=== PATIENT | male | born 1935 | race Caucasian/White ===

== ENCOUNTER 2018-03-03 08:41 | Inpatient (IN) | payer OTHER ==
[~2018-03-03] VITALS: Ht 167.6 cm; Wt 75.7 kg
[2018-03-03] MEDS ORDERED: LOSA100T6 PO (09:02)
[2018-03-03] MEDS ORDERED: CLOP75TA PO (09:03)
[2018-03-03] MEDS ORDERED: CHLO50TA PO (09:03)
[2018-03-03] MEDS ORDERED: ATOR20TA9 PO (09:04)
[2018-03-03] MEDS ORDERED: AMLO5TAB2 PO (09:04)
[2018-03-03] MEDS ORDERED: [UNRECOGNIZED DRUG - OTHER] (09:15)
[2018-03-03] MEDS ORDERED: SODIUM CHLORIDE FLUSH 10ML SYR IVF ONE (09:30)
[2018-03-03 10:07] LABS: BASOPHILS # (AUTO) 0.06 x10^3/uL (0-0.1); BASOPHILS % (AUTO) 1 % (0-1); EOSINOPHILS # (AUTO) 0.18 x10^3/uL (0-0.4); EOSINOPHILS % (AUTO) 2 % (1-7); LYMPHOCYTES # (AUTO) 1.22 x10^3/uL (1-3.4); LYMPHOCYTES % (AUTO) 14 % (22-44); MD NO; MEAN CORPUSCULAR HEMOGLOBIN 29.9 pg (27.5-34.5); MEAN CORPUSCULAR HGB CONC 33.7 g/dL (33.2-36.2); MEAN CORPUSCULAR VOLUME 88.6 fL (81-97); MONOCYTES # (AUTO) 0.73 x10^3/uL (0.2-0.8); MONOCYTES % (AUTO) 8 % (2-9); NEUTROPHILS # (AUTO) 6.84 x10^3/uL (1.8-6.8); NEUTROPHILS % (AUTO) 76 % (42-75); PLATELET COUNT 271 x10^3/uL (130-400); RED BLOOD COUNT 4.29 x10^6/uL (4.38-5.82); RED CELL DISTRIBUTION WIDTH 13.4 % (9.4-14.8)
[2018-03-03 10:08] LABS: ALBUMIN 3.7 g/dL (3.4-5.0); ANION GAP 9 mmol/L (5-15); CALCIUM 8.7 mg/dL (8.5-10.1); CHLORIDE 103 mmol/L (98-107); CREATININE 1.15 mg/dL (0.7-1.3)
[2018-03-03 10:49] LABS: TROPONIN I < 0.015 ng/mL (0.000-0.045)
[2018-03-03] MEDS ORDERED: NITROGLYCERIN 0.4 MG/SPRAY SL PRN (12:30)
[2018-03-03] MEDS ORDERED: morphine SULFATE 10 MG/ML, 1ML IVPush PRN (12:30)
[2018-03-03] MEDS ORDERED: NITROGLYCERIN 0.4 MG BOTTLE (25 TABS) SL PRN (12:30)
[2018-03-03] MEDS ORDERED: ONDANSETRON 2MG/ML, 2ML IVPush PRN (12:30)
[2018-03-03] MEDS ORDERED: ONDANSETRON ODT 4 MG PO PRN (12:30)
[2018-03-03] MEDS ORDERED: ENOXAPARIN 40 MG/0.4 ML SQ SCH (13:00)
[2018-03-03] MEDS ORDERED: POTASSIUM CHLORIDE 20 MEQ TAB.ER.PRT PO ONE (13:00)
[2018-03-03] MEDS ORDERED: HEPARIN 25,000 UNITS/500ML PMX 500 ML IV PRN (13:30)
[2018-03-03] MEDS ORDERED: HEPARIN 5,000 UNITS/ML, 1ML IV ONE (13:30)
[2018-03-03] MEDS ORDERED: HEPARIN 5,000 UNITS/ML, 1ML IV PRN (13:30)
[2018-03-03 13:46] LABS: HEMOGLOBIN A1C 7.5 % (4.2-6.3)
[2018-03-03 15:35] LABS: TROPONIN I < 0.015 ng/mL (0.000-0.045)
[2018-03-03] MEDS: ACETAMINOPHEN 325 MG TABLET PO PRN (20:05)
[2018-03-03] MEDS: ATORVASTATIN 20 MG TABLET PO SCH (20:05)
[2018-03-03 20:31] VITALS: BP 148/71
[2018-03-03 21:45] LABS: TROPONIN I < 0.015 ng/mL (0.000-0.045)
[2018-03-04 03:15] VITALS: BP 121/70
[2018-03-04 04:51] LABS: BASOPHILS # (AUTO) 0.05 x10^3/uL (0-0.1); BASOPHILS % (AUTO) 1 % (0-1); EOSINOPHILS # (AUTO) 0.28 x10^3/uL (0-0.4); EOSINOPHILS % (AUTO) 3 % (1-7); LYMPHOCYTES # (AUTO) 2.66 x10^3/uL (1-3.4); LYMPHOCYTES % (AUTO) 29 % (22-44); MD NO; MEAN CORPUSCULAR HEMOGLOBIN 30.8 pg (27.5-34.5); MEAN CORPUSCULAR HGB CONC 34.3 g/dL (33.2-36.2); MEAN CORPUSCULAR VOLUME 89.9 fL (81-97); MEAN PLATELET VOLUME 6.2 fL (7.4-10.4); MONOCYTES # (AUTO) 1.03 x10^3/uL (0.2-0.8); MONOCYTES % (AUTO) 11 % (2-9); NEUTROPHILS # (AUTO) 5.24 x10^3/uL (1.8-6.8); NEUTROPHILS % (AUTO) 57 % (42-75); PLATELET COUNT 272 x10^3/uL (130-400); RED BLOOD COUNT 4.21 x10^6/uL (4.38-5.82); RED CELL DISTRIBUTION WIDTH 13.9 % (9.4-14.8)
[2018-03-04 04:52] LABS: ALBUMIN 3.8 g/dL (3.4-5.0); ANION GAP 7 mmol/L (5-15); CALCIUM 8.7 mg/dL (8.5-10.1); CHLORIDE 105 mmol/L (98-107)
[2018-03-04 04:56] LABS: ALANINE AMINOTRANSFERASE 25 U/L (12-78); ALKALINE PHOSPHATASE 70 U/L (45-117); BILIRUBIN,TOTAL 0.5 mg/dL (0.2-1.0); CHOL/HDL RATIO 2.3; CHOLESTEROL, TOTAL 107 mg/dL (140-239); CREATININE 0.97 mg/dL (0.7-1.3); HDL CHOL % 44 % (26-37); HDL CHOLESTEROL (DIRECT) 47 mg/dL (40-60); LDL CHOLESTEROL,CALCULATED 41 mg/dL (54-169); LDL/HDL RATIO 0.9 (0.5-3.0); TOTAL PROTEIN 7.1 g/dL (6.4-8.2); TRIGLYCERIDES 94 mg/dL (50-200); VLDL CHOLESTEROL 19 mg/dL (0-25)
[2018-03-04] MEDS: ASPIRIN 81 MG TABLET EC PO SCH (05:19)
[2018-03-04 07:46] VITALS: BP 119/69
[2018-03-04] MEDS: AMLODIPINE 5 MG TABLET PO SCH (09:17)
[2018-03-04] MEDS: CHLORTHALIDONE 25 MG TABLET PO SCH (09:18)
[2018-03-04] MEDS: CLOPIDOGREL 75 MG TABLET PO SCH (09:18)
[2018-03-04] MEDS: LOSARTAN 50MG TABLET PO SCH (09:22)
[2018-03-04] MEDS: INSULIN LISPRO 100 UNITS/ML, PEN SQ-INSULIN SCH ×3 (12:00→21:47)
[2018-03-04] MEDS ORDERED: MIDAZOLAM 1 MG/ML, 5ML ONE ×2 (12:39→14:02)
[2018-03-04] MEDS ORDERED: VERAPAMIL 2.5 MG/ML, 2ML ONE ×2 (12:39→14:03)
[2018-03-04] MEDS ORDERED: FENTANYL PF 100 MCG/2ML ONE ×2 (12:39→14:02)
[2018-03-04] MEDS ORDERED: HEPARIN 1,000 UNITS/ML, 10ML ONE ×2 (12:39→14:03)
[2018-03-04] MEDS ORDERED: LIDOCAINE-MPF 2%, 2ML ONE ×2 (12:39→14:03)
[2018-03-04] MEDS ORDERED: TICAGRELOR 90 MG TABLET ONE (14:02)
[2018-03-04] MEDS ORDERED: BIVALIRUDIN 250 MG ONE (14:03)
[2018-03-04] MEDS: ACETAMINOPHEN 325 MG TABLET PO PRN (18:14)
[2018-03-04] MEDS: ATORVASTATIN 20 MG TABLET PO SCH (21:03)
[2018-03-04 21:56] VITALS: BP 128/71
[2018-03-05 00:10] VITALS: BP 113/63
[2018-03-05 05:48] LABS: BASOPHILS # (AUTO) 0.03 x10^3/uL (0-0.1); BASOPHILS % (AUTO) 0 % (0-1); EOSINOPHILS # (AUTO) 0.12 x10^3/uL (0-0.4); EOSINOPHILS % (AUTO) 1 % (1-7); LYMPHOCYTES # (AUTO) 1.71 x10^3/uL (1-3.4); LYMPHOCYTES % (AUTO) 18 % (22-44); MD NO; MEAN CORPUSCULAR HGB CONC 34.2 g/dL (33.2-36.2); MEAN CORPUSCULAR VOLUME 90.5 fL (81-97); MEAN PLATELET VOLUME 5.9 fL (7.4-10.4); MONOCYTES # (AUTO) 1.17 x10^3/uL (0.2-0.8); MONOCYTES % (AUTO) 12 % (2-9); NEUTROPHILS # (AUTO) 6.63 x10^3/uL (1.8-6.8); NEUTROPHILS % (AUTO) 69 % (42-75); PLATELET COUNT 260 x10^3/uL (130-400); RED BLOOD COUNT 4.35 x10^6/uL (4.38-5.82)
[2018-03-05] MEDS: ASPIRIN 81 MG TABLET EC PO SCH (05:48)
[2018-03-05 06:04] LABS: CHLORIDE 105 mmol/L (98-107)
[2018-03-05 06:11] LABS: ALANINE AMINOTRANSFERASE 23 U/L (12-78); ALBUMIN 3.7 g/dL (3.4-5.0); ALKALINE PHOSPHATASE 73 U/L (45-117); ANION GAP 7 mmol/L (5-15); BILIRUBIN,TOTAL 0.7 mg/dL (0.2-1.0); CALCIUM 8.6 mg/dL (8.5-10.1); TOTAL PROTEIN 7.2 g/dL (6.4-8.2)
[2018-03-05 07:13] VITALS: BP 115/62
[2018-03-05] MEDS: INSULIN LISPRO 100 UNITS/ML, PEN SQ-INSULIN SCH ×2 (08:08→11:00)
[2018-03-05] MEDS: AMLODIPINE 5 MG TABLET PO SCH (09:50)
[2018-03-05] MEDS: CLOPIDOGREL 75 MG TABLET PO SCH (09:50)
[2018-03-05] MEDS: LOSARTAN 50MG TABLET PO SCH (09:50)
[2018-03-05] MEDS: CHLORTHALIDONE 25 MG TABLET PO SCH (09:50)
[2018-03-05] MEDS ORDERED: NITR0.4T SL (12:05)
[2018-03-05] MEDS ORDERED: ASPI-621 PO (12:05)
== END 2018-03-05 14:00 | disposition home or self-care (01) | DRG 246 ==
LOC: ED 11:23 → EDIP 11:24 → ED 12:16 → 5SO 12:45 → DCLOUNGE 03-05 13:40
PROVIDERS: ADMIT Internal Medicine; ATTEND Internal Medicine
PROC: 027035Z Dilation of Coronary Artery, One Artery with Two Drug-eluting Intraluminal Devices, Percutaneous Approach (ICD-10-PCS; principal; 2018-03-04)
PROC: 4A023N7 Measurement of Cardiac Sampling and Pressure, Left Heart, Percutaneous Approach (ICD-10-PCS; 2018-03-04)
PROC: B2111ZZ Fluoroscopy of Multiple Coronary Arteries using Low Osmolar Contrast (ICD-10-PCS; 2018-03-04)
PROC: B2151ZZ Fluoroscopy of Left Heart using Low Osmolar Contrast (ICD-10-PCS; 2018-03-04)
DX: I25.110 Atherosclerotic heart disease of native coronary artery with unstable angina pectoris (principal); I50.33 Acute on chronic diastolic (congestive) heart failure; I10 Essential (primary) hypertension; E87.6 Hypokalemia; K44.9 Diaphragmatic hernia without obstruction or gangrene; E78.2 Mixed hyperlipidemia; E11.65 Type 2 diabetes mellitus with hyperglycemia; Z79.02 Long term (current) use of antithrombotics/antiplatelets; Z79.82 Long term (current) use of aspirin; Z79.84 Long term (current) use of oral hypoglycemic drugs; Z87.891 Personal history of nicotine dependence
CPT/HCPCS: 36415; 71045; 80048; 80053; 80061; 82040; 82962; 83036; 84439; 84443; 84484; 85025; 85520; 93005; 93306; 93458; 99156; 99157; 99285; C1769; C1894; C9600; J0583; J1644; J2250; J3010; J3490; C1725; C1874; C1887; J1815; Q9967

== ENCOUNTER 2018-10-04 13:31 | Emergency (ER) | payer OTHER ==
[~2018-10-04] VITALS: Ht 167.6 cm; Wt 71.8 kg
[~2018-10-04 13:31] MED LIST: AMLO-150 PO; ASPI81TA45 PO; ATOR20TA37 PO; CHLO50TA PO; CLOP75TA PO; LOSA100T14 PO; NITR0.4T SL; [UNRECOGNIZED DRUG - OTHER]
[2018-10-04 13:47] VITALS: BP 116/68
--- NOTE | 2018-10-04 14:10 | NUR ---
Urinary frequency/urgency x3 days since L wrist surgery. Urine obtained & sent. NOC
[2018-10-04 14:22] LABS: MICROSCOPIC NOT IND
[2018-10-04 14:31] LABS: CULTURE INDICATED? NO
--- NOTE | 2018-10-04 15:00 | NUR ---
Postvoid bladder scan >999ml, notified.
--- NOTE | 2018-10-04 16:00 | NUR ---
16fr. indwelling urinary catheter placed w/out difficulty. Still draining.
--- NOTE | 2018-10-04 16:32 | NUR ---
Total urine output 1300cc yellow clear urine. gravity drainage bag changed to leg bag with teaching & supplies provided to pt. Teaching done for both pt & . Verb. understanding.
[2018-10-07] MEDS ORDERED: CARV-39 PO (19:27)
[2018-10-07] MEDS ORDERED: TAMS-11 PO (19:27)
== END 2018-10-04 16:35 | disposition home or self-care (01) ==
LOC: ED 14:32
DX: R33.0 Drug induced retention of urine (principal); T41.45XA Adverse effect of unspecified anesthetic, initial encounter; I10 Essential (primary) hypertension; E11.9 Type 2 diabetes mellitus without complications; Z72.9 Problem related to lifestyle, unspecified; Z87.891 Personal history of nicotine dependence; Y92.89 Other specified places as the place of occurrence of the external cause
CPT/HCPCS: 51702; 81003; 99284

== ENCOUNTER → 2020-04-02 | Outpatient (CLI) | payer MEDICARE ==
[~2020-04-02] MED LIST changes: +CARV-39 PO; +CEFD300C37 PO; +METF500T17 PO; -NITR0.4T SL; +NITR0.4T41 SL; +OMNIPAQUE 350 MG/ML, 75ML BOTTLE ONE; +TAMS-11 PO
== END | disposition home or self-care (01) ==
LOC: RAD 16:09
PROVIDERS: ATTEND Physician Assistant
DX: K44.9 Diaphragmatic hernia without obstruction or gangrene (principal); K57.30 Diverticulosis of large intestine without perforation or abscess without bleeding
CPT/HCPCS: 36415; 74177; 82565; Q9967